=== PATIENT | female | born 1935 | race Caucasian/White ===

== ENCOUNTER 2021-12-09 10:53 | Emergency (ER) | payer OTHER ==
[2021-12-09 12:51] LABS: BILIRUBIN NEGATIVE (NEGATIVE); BLOOD NEGATIVE Ery/uL (NEGATIVE); COLOR YELLOW (YELLOW); GLUCOSE (U) NORMAL (NORMAL); LEUKOCYTES 2+ Leu/uL (NEGATIVE); NITRITE POSITIVE (NEGATIVE); PROTEIN 1+ mg/dL (NEGATIVE); SPECIFIC GRAVITY 1.025 (1.001-1.030); UROBILINOGEN 0.2 mg/dL (0.2-1.0)
[2021-12-09 12:52] LABS: CLARITY HAZY (CLEAR)
[2021-12-09 13:06] LABS: BACTERIA 3+; SQUAMOUS EPITHELIAL CELLS RARE; URINARY WBC TNTC
[2021-12-09 13:11] LABS: BASOPHIL 0.2 % (0-2); EOSINOPHIL 1.3 % (0-7); HGB 10.9 g/dl (12.5-16.0); LYMPHOCYTE 10.3 % (15-48); MCH 31.6 pg (25.0-31.0); MCHC 32.1 g/dL (32.0-36.0); MCV 98.6 fL (78.0-100.0); MPV 10.3 fL (6.0-9.5); NEUTROPHIL 79.7 % (41-80); NRBC 0; PLT 272 K/uL (150-400); RBC 3.45 M/uL (4.20-5.40); RDW 12.5 % (11.5-14.0); WBC 13.3 K/uL (4.0-10.5)
[2021-12-09 13:22] LABS: ALBUMIN 3.7 g/dL (3.4-5.0); BILIRUBIN - TOTAL 0.5 mg/dL (0.2-1.0); BUN/CREAT RATIO (CALC) 21.8 RATIO; CREATININE 1.42 mg/dL (0.51-0.95); GLOBULIN (CALCULATION) 3.4 g/dL; POTASSIUM 5.4 mmol/L (3.5-5.1); TOTAL PROTEIN 7.1 g/dL (6.4-8.2)
[2021-12-09 13:54] LABS: LACTIC ACID 0.8 mmol/L (0.4-1.9)
[2021-12-09] MEDS ORDERED: AUGMENTIN 500-1 EACH PO (14:16)
== END 2021-12-09 15:19 | disposition home or self-care (01) ==
LOC: FER 10:53
PROVIDERS: Nurse Practitioner Family
DX: N17.9 Acute kidney failure, unspecified (principal); N39.0 Urinary tract infection, site not specified; E87.5 Hyperkalemia; I10 Essential (primary) hypertension; E78.5 Hyperlipidemia, unspecified; F03.90 Unspecified dementia, unspecified severity, without behavioral disturbance, psychotic disturbance, mood disturbance, and anxiety; Z20.822 Contact with and (suspected) exposure to COVID-19; Z79.899 Other long term (current) drug therapy
CPT/HCPCS: 36415; 71045; 80053; 81001; 83605; 85025; 87076; 87088; 87186; U0002